=== PATIENT | male | born 1965 | race Caucasian/White ===

== ENCOUNTER → 2018-03-26 08:57 | Outpatient (CLI) | payer MEDICARE ==
[~2018-03-26 08:57] MED LIST: CARDURA4 MG PO; CYCLOBENZAPRINE10 MG PO; FUROSEMIDE20 MG PO; GLEEVEC100 MG PO; HCTZ25 MG PO; HYDRALAZINE HCL50 MG PO; NORVASC5 MG PO; OMEPRAZOLE20 M1 PO; OXYCODONE-APAP1 TAB PO; PHENERGAN25 M1 PO; VENTOLIN HFA18 GM INJ; XANAX1 MG PO; ZOVIRAX 5% CREAM5 GM TOPICAL
[2018-04-10 11:38] VITALS: BMI 46.2
== END | disposition home or self-care (01) ==
LOC: D.HCCARDIO 08:57
DX: I20.9 Angina pectoris, unspecified (principal)

== ENCOUNTER 2018-04-10 11:02 | Outpatient (CLI) | payer MEDICARE ==
[~2018-04-10] VITALS: Ht 182.9 cm; Wt 154.5 kg
--- NOTE | ~2018-04-10 | HEMODYNAMI ---
PATIENT:ORI SILVA MEDICAL RECORD: [id number] : 69 LOCATION:[facility] ADMISSION DATE: 04/10/18 Generatedon:04/10/201812:55 Patient name: ORI SILVA Patient #: [id number] SSN: : 1965 Date of study: 04/10/2018 Page: Of Hemodynamic Procedure Report Patient Data Patient Demographics Procedure consent was obtained First Name: ORI Gender: Male Last Name: RICARDO : 1965 [facility] Initial: MACY Age: 52 year(s) Patient #: [id number] Race: Unknown Additional ID: [id number] Contact details Address: [address] [place] [address] State: [place] City: [place] Zip code: [address] Past Medical History Allergies: No known allergies Admission Admission Data Admission Date: 04/10/2018 Admission Time: 11:02 Lab Results Lab Result Date: 04/10/2018 Lab Result Time: 11:30 Biochemistry Name Units Result Min Max BUN mg/dl 15 --(--*-)-- 7 18 Creatinine mg/dl 1 --(--*-)-- 0.6 1.3 CBC Name Units Result Min Max Hematocrit % 38 *-(----)-- 42 54 Hemoglobin g/dl 12.6 -*(----)-- 13.5 17.5 Procedure Procedure Types Cath Procedure Diagnostic Procedure [facility] w/Coronaries Sedation Charges Moderate Sedation up to 15 minutes Procedure Description Procedure Date Procedure Date: 04/10/2018 Procedure Start Time: 12:43 Procedure End Time: 12:53 Procedure Staff Name Function Tristian Taylor RT Monitor Aarti Moses RN Nurse Margo Ott RT Scrub Ildefonso Shea RN Cake Press Operator Otoniel Still MD Performing Physician Procedure Data Cath Procedure Fluoroscopy Diagnostic fluoroscopy Total fluoroscopy Time: 2.5 time: 2.5 min min Diagnostic fluoroscopy Total fluoroscopy dose: dose: 1067 mGy 1067 mGy Contrast Material Contrast Material Type Amount (ml) Isovue 300 104 Entry Location Entry Primary Successful Side Size Upsize Upsize Entry Closure Mccord ccessful Closure Location (Fr) 1 (Fr) 2 (Fr) Remarks Device Remarks Radial Right 6 Fr Mechanical artery Short Compression Estimated blood loss: 5 ml Diagnostic catheters Device Type Used For End Catheter Placement DIAGNOSTIC Pigtail 5Fr Procedure catheter ([id number]) Procedure Complications No complications Procedure Medications Medication Administration Route Dosage Oxygen etCO2 Nasal cannula 2 l/min Lidocaine 2% added to field 20 Heparin Flush Bag added to field 2 bags (1000units/500ml NS) 0.9% NaCl I.V. 100 ml/hr Radial Cocktail I.A. 1 syringe (Verapomil 2mg/Nitro 400mcg/Heparin 1500units) Versed I.V. 2 mg Fentanyl I.V. 100 mcg Versed I.V. 2 mg Fentanyl I.V. 100 mcg Versed I.V. 2 mg Fentanyl I.V. 100 mcg Versed I.V. 2 mg Fentanyl I.V. 100 mcg Hemodynamics Rest HGB: 12.6 (g/dl) Heart Rate: 97 (bpm) Pressure Samples Time Site Value (mmHg) Purpose Heart Use Rate(bpm) 12:44 LV 178/14,31 Snapshot 98 Gradients Valve Time Site Site Mean SEP/DFP Peak To Heart Use 1 2 (mmHg) (sec/min) Peak Rate (mmHg) (bpm) Aortic 12:45 LV AO 98 Snapshots Pre Cath Intra NCS Post Cath Vital Signs Time Heart Resp SPO2 etCO2 NIBP (mmHg) Rhythm Pain Sedation Rate (ipm) (%) (mmHg) Status Level (bpm) 12:16:41 97 24 96 31.8 165/94(119) NSR 0 (11) 10(A) , No pain 12:20:58 92 24 96 31.8 148/91(106) NSR 0 (11) 10(A) , No pain 12:25:09 96 20 96 36.3 155/94(110) NSR 0 (11) 10(A) , No pain 12:29:21 97 18 96 30.3 146/93(107) NSR 0 (11) 10(A) , No pain 12:33:33 93 24 94 31.8 149/93(109) NSR 0 (11) 10(A) , No pain 12:37:47 72 30 93 31 140/87(104) NSR 0 (11) 10(A) , No pain 12:41:57 91 18 93 39.4 142/87(122) NSR 0 (11) 10(A) , No pain 12:46:13 87 42 94 37.1 128/76(97) NSR 0 (11) 10(A) , No pain 12:50:21 80 17 93 32.5 143/82(112) NSR 0 (11) 10(A) , No pain 12:54:33 83 24 93 42.4 131/88(110) NSR 0 (11) 10(A) , No pain Medications Time Medication Route Dose Verified Delivered Reason Notes Effectiveness by by 12:18:36 Oxygen etCO2 2 l/min Otoniel Buffie used for Nasal Cheko Moses RN procedure cannula 12:27:17 Lidocaine 2% added 20ml Otoniel Otoniel for local to vial Cheko Still MD anesthetic field 12:27:26 Heparin Flush added 2 bags Otoniel Otoniel used for Bag to Cheko Still MD procedure (1000units/500ml field NS) 12:27:37 0.9% NaCl I.V. 100 Otoniel Buffie Per ml/hr Cheko Moses RN physician 12:34:31 Versed I.V. 2 mg Otoniel Buffie for sedation Cheko Moses RN 12:34:37 Fentanyl I.V. 100 mcg Otoniel Buffie for sedation Cheko Moses RN 12:39:05 Versed I.V. 2 mg Otoniel Buffie for sedation Cheko Moses RN 12:39:09 Fentanyl I.V. 100 mcg Otoniel Buffie for sedation Cheko Moses RN 12:43:59 Radial Cocktail I.A. 1 Otoniel Otoniel for (Verapomil syringe Cheko Still MD vasodilation 2mg/Nitro 400mcg/Heparin 1500units) 12:44:34 Versed I.V. 2 mg Otoniel Buffie for sedation Cheko Moses RN 12:44:38 Fentanyl I.V. 100 mcg Otoniel Buffie for sedation Cheko Moses RN 12:48:18 Versed I.V. 2 mg Otoniel Buffie for sedation Cheko Moses RN 12:48:22 Fentanyl I.V. 100 mcg Otoniel Buffie for sedation Still MD Moses metal fabricator welder Log Time Note 12:02:53 Ildefonso Shea RN sent for patient. Start room use. 12:02:54 Time tracking: Regular hours (M-F 7:00 - 5:00) 12:02:59 Plan of Care:Hemodynamics will remain stable., Cardiac rhythm will remain stable., Comfort level will be maintained., Respiratory function will remain adequate., Patient/ family verbilizes understanding of procedure., Procedure tolerated without complication., Recovers from procedure without complications.. 12:09:52 Patient received from Pre/Post Procedure Room to CCL 2 Alert and oriented. Tansferred to table in Supine position. 12::53 Warm blankets applied, and rupert hugger turned on for patient comfort. 12::54 Correct patient and procedure confirmed by team. 12:09:56 Signed procedure consent form obtained from patient. 12::57 ECG and BP/O2 sat monitors applied to patient. 12:09:57 Full Disclosure recording started 12:15:40 Vital chart was started 12:18:36 Oxygen 2 l/min etCO2 Nasal cannula was administered by Aarti Moses RN; used for procedure; 12:25:22 Baseline sample Acquired. 12:25:23 Baseline sample Acquired. 12:26:10 H&P Date Dictated: 04/10/2018 New H&P dictated by physician.. 12:26:11 Pre-procedure instructions explained to patient. 12:26:11 Pre-op teaching completed and patient verbalized understanding. 12:26:13 Family in waiting room. 12:26:15 Patient NPO since Midnight. 12:26:20 Patient allergic to No known allergies 12:26:25 Is the patient allergic to Iodine/contrast media? No. 12:26:28 Is patient on blood thinner?No 12:26:29 Patient diabetic? No. 12:26:32 Previous problem with sedation/anesthesia? No ? 12:26:33 Snore? Yes 12:26:34 Sleep apnea? No 12:26:36 Deviated septum? No 12:26:37 Opens mouth fully? Yes 12:26:38 Sticks out tongue? Yes 12:26:41 Airway obstruction? No ? 12:26:45 Dentures? Yes OUT 12:26:49 Pre procedure: right dorsailis pedis pulse 2+ Normal; easily identifiable; not easily obliterated 12:26:52 Modified Pk's test Ulnar < 7 seconds 12::54 Patient pain scale 0/10 ?. 12:27:00 IV patent on arrival in left antecubital with 0.9% NaCl at [facility]. 12:27:16 Baseline sample Acquired. 12::17 Lidocaine 2% 20ml vial added to field was administered by Otoniel Still MD; for local anesthetic; 12:27:21 Rhythm: sinus tachycardia 12:: Heparin Flush Bag (1000units/500ml NS) 2 bags added to field was administered by Otoniel Still MD; used for procedure; 12::37 0.9% NaCl 100 ml/hr I.V. was administered by Aarti Moses RN; Per physician; 12::36 Lab Result : BUN 15 mg/dl 12::36 Lab Result : Creatinine 1 mg/dl 12::36 Lab Result : Hemoglobin 12.6 g/dl 12::36 Lab Result : Hematocrit 38 % 12::38 Lab results completed and on chart. 12:30:41 Right Radial & Right Groin area was prepped with chlora-prep and draped in sterile fashion 12::42 Alarms reviewed by R. N. 12:30:42 Sharps counted by scrub and verified by R.N. 12:30:45 Use device set Radial Dx or PCI 12:30:47 ACIST Syringe (10691) opened to sterile field. 12:30:47 Medline Cath Pack ([id number]) opened to sterile field. 12:30:48 Bag Decanter () opened to sterile field. 12:30:49 ACIST Hand Control (38781) opened to sterile field. 12:31:00 Tegaderm 4 x 4 (1626W) opened to sterile field. 12:31:00 MBrace Wrist Support ([id number]) opened to sterile field. 12:31:02 SHEATH 6FR Slender (84-1938) opened to sterile field. 12:31:02 DIAGNOSTIC WIRE .035 260cm J wire ([id number]) opened to sterile field. 12:31:04 ACIST Manifold (48869) opened to sterile field. 12:32:38 Physician arrived 12:32:39 --------ALL STOP TIME OUT------ 12:32:39 Final Timeout: patient, procedure, and site verified with staff and physician. All members of the team are in agreement. 12:32:40 Right Radial & Right Groin site verified by team. 12:32:44 Physical assessment completed. ASA score P 3 - A patient with severe systemic disease as per Otoniel Still MD. 12:32:47 Sedation plan: IV Moderate Sedation Medication:Versed, Fentanyl 12:33:39 Zero performed for pressure channel P1 12:34:31 Versed 2 mg I.V. was administered by Aarti Moses RN; for sedation; 12:34:37 Fentanyl 100 mcg I.V. was administered by Aarti Moses RN; for sedation; 12:39:05 Versed 2 mg I.V. was administered by Aarti Moses RN; for sedation; 12:39:09 Fentanyl 100 mcg I.V. was administered by Aarti Moses RN; for sedation; 12:43:15 Procedure started. 12:43:19 Local anesthetic to right radial artery with Lidocaine 2% by Otoniel Still MD.INITIAL ACCESS ONLY 12:43:31 A 6 Fr Short sheath was inserted into the Right Radial artery 12:43:59 Radial Cocktail (Verapomil 2mg/Nitro 400mcg/Heparin 1500units) 1 syringe I.A. was administered by Otoniel Still MD; for vasodilation; 12:44:34 Versed 2 mg I.V. was administered by Aarti Moses RN; for sedation; 12:44:38 Fentanyl 100 mcg I.V. was administered by Aarti Moses RN; for sedation; 12:45:13 LV hemodynamics recorded. 12:45:14 LV gram done using WEST 12:45:18 Injector settings: Ml/sec: 5, Volume: 15, 12:45:34 EF : 60 % 12:46:12 RCA angiography performed. 12:47:34 LCA angiography performed. 12:48:18 Versed 2 mg I.V. was administered by Aarti Moses RN; for sedation; 12:48:22 Fentanyl 100 mcg I.V. was administered by Aarti Moses RN; for sedation; 12:48:47 Catheter removed. 12:49:25 A DIAGNOSTIC Pigtail 5Fr catheter ([id number]) was advanced over the wire and used for Procedure. 12:50:18 Aortic Root visualized 12:50:48 Catheter removed. 12:50:53 TR BAND Large ([id number]) opened to sterile field. 12:51:00 Sheath removed intact; hemostasis achieved with Mechanical Compression to the Right Radial artery. 12:51:01 Procedure ended.(Physican Out) 12:52:10 Fluoroscopy time 02.50 minutes. 12:52:13 Fluoroscopy dose: 1067 mGy 12:52:13 Flurop Dose total: 1067 12:52:17 Contrast amount:Isovue 300 104ml. 12:52:18 Sharps counted by scrub and verified by R.N. 12:52:20 Insertion/operative site no bleeding no hematoma. 12:52:26 Post right radial artery:stable, soft, clean and dry 12:52:27 Post Procedure Pulses reassessed and unchanged 12:52:35 Post-procedure physical assessment completed. ASA score P 3 - A patient with severe systemic disease as per Otoniel Still MD. 12:52:59 Post procedure rhythm: unchanged. 12:53:05 Estimated blood loss: 5 ml 12:53:09 Post procedure instruction explained to patient.Patient verbalizes understanding. 12:53:10 Patient needs reinforcement of post procedure teaching. 12:53:27 Procedure type changed to Cath procedure, Diagnostic procedure, LHC, LHC w/Coronaries, Sedation Charges, Moderate Sedation up to 15 minutes 12:53:47 Procedure and supply charges have been captured, reviewed, submitted and are correct. 12:53:49 Procedure Complication : No complications 12:53:51 Vital chart was stopped 12:53:52 See physician's report for complete and final results. 12:53:54 Report given to Pre/Post Procedure Room. 12:53:56 Patient transfered to Pre/Post Procedure Room with Stretcher. 12:53:59 Procedure ended. 12:53:59 Full Disclosure recording stopped 12:54:07 End room use (Document Last) Device Usage Item Name Manufacture Quantity Catalog Hospital Part Current Minimal Lot# / Number Charge Number Stock Stock Serial# Code ACIST Acist 1 03232 625696 [id number] [id number] 20 Syringe GRID (93379) Systems Inc Medline Medline 1 [id number] 408765 52995 922362 5 Cath Pack ([id number]) Bag Microtek 1 418199 40199 597060 5 Decanter Medical Inc. () ACIST Hand Acist 1 83695 868246 395240 201271 5 Control Medical (08381) Systems Inc Tegaderm 4 3M 1 1626W 885246 544616 847087 5 x 4 (1626W) MBrace Advanced 1 140-0250-00 273296 60616 808175 5 Wrist Vascular Support Dynamics ([id number]) SHEATH 6FR Terumo 1 [id number] 628200 296316 798361 40 Slender (80-1060) DIAGNOSTIC St Al 1 170662 261726 864561 591028 30 WIRE .035 260cm J wire (863026) ACIST Acist 1 32596 368833 964299 831572 5 Manifold Medical (89942) Systems Inc DIAGNOSTIC Cardinal 1 [id number] 291087 026740 462057 5 Pigtail 5Fr Health catheter (792428D) TR BAND Terumo 1 [id number] 390907 036966 124362 40 Large ([id number]) Signature Audit Marshall Stage Time Signature Unsigned Intra-Procedure 04/10/2018 Tristian Taylor 12:55:41 PM RT(R) Signatures Monitor : Tristian Taylor RT Signature : Date : Time : [place] [id number] [facility] [place] [address]
[2018-04-10] MEDS ORDERED: CARDURA4 MG PO (11:17)
[2018-04-10] MEDS ORDERED: HYDRALAZINE HCL50 MG PO (11:18)
[2018-04-10] MEDS ORDERED: PHENERGAN25 M1 PO (11:18)
[2018-04-10] MEDS ORDERED: CYCLOBENZAPRINE10 MG PO (11:20)
[2018-04-10] MEDS ORDERED: NORVASC5 MG PO (11:20)
[2018-04-10] MEDS ORDERED: FUROSEMIDE20 MG PO (11:20)
[2018-04-10] MEDS ORDERED: XANAX1 MG PO (11:21)
[2018-04-10] MEDS ORDERED: OMEPRAZOLE20 M1 PO (11:21)
[2018-04-10] MEDS ORDERED: OXYCODONE-APAP1 TAB PO (11:22)
[2018-04-10] MEDS ORDERED: ZOVIRAX 5% CREAM5 GM TOPICAL (11:23)
[2018-04-10] MEDS ORDERED: GLEEVEC100 MG PO (11:23)
[2018-04-10] MEDS ORDERED: VENTOLIN HFA18 GM INJ (11:24)
[2018-04-10] MEDS ORDERED: HCTZ25 MG PO (11:26)
[2018-04-10 11:38] VITALS: BP 113/68; Ht 182.9 cm; Wt 154.5 kg
[2018-04-10 11:47] LABS: CALC OSMOLALITY 289 mosm/kg (275-300); CALCIUM 8.8 mg/dL (8.5-10.1); CARBON DIOXIDE 24.8 mmol/L (21.0-32.0); CHLORIDE - SERUM 106 mmol/L (98-107); GLUCOSE 205 mg/dL (74-106); SODIUM 142 mmol/L (136-145); UREA NITROGEN 15 mg/dL (7-18); eGFR NON AFRICAN AMERICAN 84 mL/min (90-120)
[2018-04-10 11:55] LABS: BASOPHILS 0.3 % (0-2); EOSINOPHILS 3.5 % (0-7); HEMOGLOBIN 12.6 g/dL (13.5-17.5); IMMATURE GRANULOCYTES 0.3 % (0-5); LYMPHOCYTES 30.2 % (15-50); MCH 31.1 pg (26.0-34.0); MCHC 33.2 g/dL (31.0-37.0); MCV 93.8 fL (80.0-100.0); MEAN PLATELET VOLUME 10.9 fL (7.4-10.4); MONOCYTES 6.3 % (2-11); NEUTROPHILS 59.4 % (40-80); PLATELET COUNT 183 10x3/uL (130-400); RBC 4.05 10x6/uL (4.20-6.10); RDW 14.9 % (11.5-14.5); WBC 6.7 10x3/uL (4.8-10.8)
== END 2018-04-10 15:25 ==
LOC: D.CATH 11:02
PROVIDERS: Internal Medicine Cardiovascular Disease
DX: I20.9 Angina pectoris, unspecified (principal); I35.1 Nonrheumatic aortic (valve) insufficiency; I10 Essential (primary) hypertension; C92.10 Chronic myeloid leukemia, BCR/ABL-positive, not having achieved remission; K21.9 Gastro-esophageal reflux disease without esophagitis; M19.90 Unspecified osteoarthritis, unspecified site; F12.90 Cannabis use, unspecified, uncomplicated; Z87.891 Personal history of nicotine dependence; Z79.891 Long term (current) use of opiate analgesic; Z79.899 Other long term (current) drug therapy